=== PATIENT | male | born 1950 | race Caucasian/White ===

== ENCOUNTER 2016-12-22 19:51 | Emergency (ER) | payer MEDICARE ==
--- NOTE | 2016-12-22 20:25 | ED Physician Documentation ---
PD HPI CHEST PAIN - Stated complaint Stated Complaint: CHEST PX - Chief complaint Chief Complaint: Cardiac - History obtained from History obtained from: Patient - History of Present Illness Timing - onset: Other (Since early this morning he's had intermittent substernal chest achiness that is waxing and waning without a particular pattern. It does not seem to be related to eating, exertion. There is no radiation to it. It is never severe. Seen in his doctor's office this morning and had a normal EKG. He has no personal history of heart disease.) Review of Systems Ten Systems: 10 systems reviewed and negative Constitutional: denies: Fever, Chills Cardiac: denies: Palpitations, Pedal edema, Calf pain Respiratory: denies: Dyspnea, Cough, Hemoptysis, Wheezing PD PAST MEDICAL HISTORY - Past Medical History Past Medical History: Yes Cardiovascular: Hypertension - Past Surgical History General: Appendectomy - Present Medications Home Medications: Ambulatory Orders Medication Instructions Recorded Confirmed Clonidine HCl 0.2 mg PO BID 09/11/14 09/11/14 Lisinopril 20 mg PO DAILY 09/11/14 09/11/14 - Allergies Allergies/Adverse Reactions: Allergies Allergy/AdvReac Type Severity Reaction Status Date / Time No Known Drug Allergies Allergy Verified 12/22/16 20:01 - Social History Does the pt smoke?: No Smoking Status: Never smoker Does the pt drink ETOH?: Yes Does the pt have substance abuse?: No - Family History Family history: reports: Non contributory - Immunizations Immunizations are current?: Yes - POLST Patient has POLST: No PD ED PE NORMAL - Vitals Vital signs reviewed: Yes - General General: Alert and oriented X 3, No acute distress - HEENT HEENT: PERRL, EOMI - Neck Neck: Supple, no meningeal sign, No bony TTP - Cardiac Cardiac: RRR, No murmur - Respiratory Respiratory: No respiratory distress, Clear bilaterally - Abdomen Abdomen: Soft, Non tender - Back Back: No CVA TTP, No spinal TTP - Derm Derm: Normal color, Warm and dry - Extremities Extremities: No edema, No calf tenderness / cord - Neuro Neuro: Alert and oriented X 3, Normal speech - Psych Psych: Normal mood, Normal affect Results - Vitals Vitals: Vital Signs - 24 hr 12/22/16 12/22/16 12/22/16 19:58 21:21 23:01 Temperature 36.2 C L Heart Rate 78 68 60 Respiratory 19 20 20 Rate Blood Pressure 198/104 H 158/77 H 159/85 H O2 Saturation 98 96 98 Oxygen O2 Source Room air - EKG (time done) 2022 Rate: Rate (enter#) (62) Rhythm: NSR [place]: Normal Intervals: Normal PA QRS: Normal Ischemia: Normal ST segments Computer interpretation: Agree with computer - Labs Labs: Laboratory Tests 12/22/16 12/22/16 12/22/16 20:05 20:05 20:05 WBC 7.0 RBC 4.76 Hgb 15.2 Hct 43.6 MCV 91.7 MCH 31.9 H MCHC 34.8 RDW 13.1 Plt Count 237 MPV 8.2 Neut # 4.4 Lymph # 1.7 [place] # 0.7 Eos # 0.3 Baso # 0.0 Absolute Nucleated RBC 0.01 Nucleated RBCs 0.1 Sodium 140 Potassium 3.4 L Chloride 102 Carbon Dioxide 29 Anion Gap 9.0 BUN 17 Creatinine 0.7 Estimated GFR (MDRD) 112 Glucose 109 H Calcium 9.2 Total Bilirubin 0.3 AST 24 ALT 28 Alkaline Phosphatase 61 Total Creatine Kinase 196 CK-MB (CK-2) 6.4 H Troponin I < 0.04 Total Protein 7.6 Albumin 4.3 Globulin 3.3 Albumin/Globulin Ratio 1.3 Lipase 36 12/22/16 21:50 WBC RBC Hgb Hct MCV MCH MCHC RDW Plt Count MPV Neut # Lymph # [place] # Eos # Baso # Absolute Nucleated RBC Nucleated RBCs Sodium Potassium Chloride Carbon Dioxide Anion Gap BUN Creatinine Estimated GFR (MDRD) Glucose Calcium Total Bilirubin AST ALT Alkaline Phosphatase Total Creatine Kinase CK-MB (CK-2) Troponin I < 0.04 Total Protein Albumin Globulin Albumin/Globulin Ratio Lipase - Rads (name of study) 2v chest Radiology: EMP read contemporaneously (NAD) PD MEDICAL DECISION MAKING - ED course ED course: Has had constant pain for several hours now, atypical and mild with delta trop neg in the ED and no other findings. Discussed needs close followup, likely stress. 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 Return if worse or if new symptoms develop. Your blood pressure was elevated today on check in to the emergency department. This does not mean that you have hypertension, it is a common phenomenon to check into the emergency department and have elevated blood pressure. I recommend that you see your primary care physician within the week to have it rechecked when you're feeling better. Discharge Date/Time: 12/22/16 23:02
[2016-12-22 20:29] LABS: BASOPHILS % (AUTO) 0.4 %; EOSINOPHILS # (AUTO) 0.3 10^3/uL (0.0-0.7); EOSINOPHILS % (AUTO) 4.7 %; HCT - HEMATOCRIT 43.6 % (42.0-52.0); HGB - HEMOGLOBIN 15.2 g/dL (14.0-18.0); LYMPHOCYTES # (AUTO) 1.7 10^3/uL (1.5-3.5); LYMPHOCYTES % (AUTO) 23.5 %; MEAN CORPUSCULAR HEMOGLOBIN 31.9 pg (27.0-31.0); MEAN CORPUSCULAR HGB CONC 34.8 g/dL (32.0-36.0); MEAN CORPUSCULAR VOLUME 91.7 fL (80.0-94.0); MEAN PLATELET VOLUME 8.2 fL (7.4-11.4); MONOCYTES # (AUTO) 0.7 10^3/uL (0.0-1.0); MONOCYTES % (AUTO) 9.5 %; NEUTROPHILS # (AUTO) 4.4 10^3/uL (1.5-6.6); NEUTROPHILS % (AUTO) 61.9 %; NUCLEATED RED BLOOD CELLS AUTO 0.1 /100WBC; RED BLOOD COUNT 4.76 10^6/uL (4.70-6.10); RED CELL DISTRIBUTION WIDTH 13.1 % (12.0-15.0)
[2016-12-22 20:44] LABS: ALBUMIN/GLOBULIN RATIO 1.3 (1.0-2.2); BILIRUBIN,TOTAL 0.3 mg/dL (0.2-1.0); CALCIUM 9.2 mg/dL (8.5-10.3); CREATININE 0.7 mg/dL (0.6-1.2); POTASSIUM 3.4 mmol/L (3.5-5.0); TOTAL PROTEIN 7.6 g/dL (6.7-8.2)
[2016-12-22 20:49] LABS: CREATINE KINASE MB 6.4 ng/mL (0.6-6.3); TROPONIN I < 0.04 ng/mL (<0.49)
--- NOTE | 2016-12-22 22:43 | XRAY Preliminary Report ---
Exam: XR Chest 2 View PA/LAT IMPRESSION: Stable appearance of the chest without acute cardiopulmonary abnormality. [facility] SITE ID: [id number]
--- NOTE | 2016-12-22 22:46 | XRAY Report ---
EXAM: CHEST RADIOGRAPHY EXAM DATE: 12/22/2016 10:07 PM. CLINICAL HISTORY: Chest pain. COMPARISON: 07/21/2015 TECHNIQUE: 2 views. FINDINGS: Lungs/Pleura: There is right hemidiaphragm eventration as before. Small subsegmental right middle lob e opacity again noted, most consistent with persistent atelectasis and or scarring. There is no new a irspace disease. No effusion or pneumothorax is demonstrated. Mediastinum: Heart and mediastinal contours are unremarkable. Other: None. IMPRESSION: Stable appearance of the chest without acute cardiopulmonary abnormality. [facility] Referring Provider Line: [phone] SITE ID: [id number]
[2016-12-22 23:03] VITALS: BP 159/85
== END 2016-12-22 23:02 | disposition home or self-care (01) ==
LOC: ED 19:51
DX: R07.89 Other chest pain (principal); I10 Essential (primary) hypertension
CPT/HCPCS: 36415; 71020; 80053; 82550; 82553; 83690; 84484; 85025; 93005; 93010; 99283; 99284

== ENCOUNTER 2018-12-23 11:55 | Outpatient (CLI) | payer BC, MEDICARE | END 2018-12-23 11:56 | disposition short-term general hospital (02) | LOC: EMS 11:55 | PROVIDERS: ATTEND Surgery | DX: R11.2 Nausea with vomiting, unspecified (principal); R55 Syncope and collapse; R50.9 Fever, unspecified | CPT/HCPCS: A0425; A0427 ==

== ENCOUNTER 2019-08-28 09:37 | Outpatient (CLI) | payer OTHER, MEDICARE ==
--- NOTE | 2019-08-28 15:22 | XRAY Report ---
Reason: RIGHT HAND TENDINITIS Procedure Date: 08/28/2019 Accession Number: [id number] / [id number] Procedure: WCP - Hand 3 View RT CPT Code: Final Report FULL RESULT: EXAM: RIGHT HAND RADIOGRAPHY EXAM DATE: 08/28/2019 09:37 AM. CLINICAL HISTORY: RIGHT HAND TENDINITIS. COMPARISON: None. TECHNIQUE: 3 views. FINDINGS: Bones: No acute fractures or suspicious bone lesions. Joints: No subluxations. Soft Tissues: Unremarkable. IMPRESSION: No acute radiographic abnormalities. [facility]
== END 2019-08-28 23:59 | disposition home or self-care (01) ==
LOC: DI.WCP 09:37
PROVIDERS: ATTEND Family Medicine
DX: M77.9 Enthesopathy, unspecified (principal)

== ENCOUNTER 2020-09-08 16:11 | Outpatient (CLI) | payer OTHER, MEDICARE ==
[2020-09-08 17:16] VITALS: BP 130/73
--- NOTE | 2020-09-08 17:16 | SLEEP CARE CONSULTATION ---
Information from patient questionnaire entered by Ramez Quiles. I have reviewed and concur with the information entered by Ramez Quiles. This document represents the service I personally performed and the decisions made by me, Eneida Mix ARNP. History of Present Illness Service Date and Time: 09/08/2020 1611 Reason for Visit: New patient Chief Complaint: reports: Unrefreshed sleep, Snoring, Observed pauses in breathing, Fatigue, Frequent awakenings at night Date of Onset: 5 years Usual bedtime: 9:30 Time it takes to fall asleep: 10 min Snores at night: Yes Observed to quit breathing while asleep: Yes Sleeps alone due to snoring: No Number of times waking at night: ? Reasons for waking at night: reports: Gasping for air, Other (?). denies: Choking, Snoring Toss, Turn, or Twitch while sleeping: Yes Recalls having dreams: Yes Usually gets out of bed at: 3:00 am Feels refreshed in the morning: No Morning headache: No Sleepy or fatigued during the day: Yes Ever fallen asleep while driving: No Takes day naps: Yes (1 hour in evenings) Dreams during day naps: No Prior sleep studies: No Additional HPI information: I had the pleasure of seeing ERIC ARAGON today regarding the possibility of him having a sleep disorder. His current complaints are frequent night awakenings and unrefreshed sleep. He had a checkup with PCP and was suggested to have evaluation. He snores loudly but not enough to run out of room. His has never noticed him have any pauses in breathing but he has noticed it. He has woke up trying to catch his breath occasionally. 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 Patient is and lives in [place]. Have you smoked in the past 12 months: No Alcohol use: Yes Alcohol amount and frequency: 2-3 times a week Caffeine use: Yes Caffeine amount and frequency: 2 cups coffee each morning Family History Family history of sleep disordered breathing: Yes (Father) Family Hx Sleep Apnea: Father: Snoring, Sleep apnea - Untreated (currently ) Allergies and Home Medications Drug allergies reviewed: Yes (NKDA) Home medication list reviewed: Yes Allergy and home medication list: Felodipine Rosuvatatin Hydrochlorothiazide Lisinopril Clonidine Review of Systems Weight gain over past 5 years: Yes Weight loss over past 5 years: 10 Cardiovascular: reports: high blood pressure, palpitations Gastrointestinal: reports: heartburn Neurological: denies: headaches, head trauma Ear/Nose/Throat: reports: dry mouth/throat (more in afternoon, some in morning; probably medication related). denies: injury to nose, tonsillectomy, wisdom teeth removed Endocrine: reports: sluggishness (tired) Musculoskeletal: reports: muscle pain or cramping Immunologic: denies: allergies to food or environment Physical Exam Vital signs obtained and entered by: Blood Pressure: 130/73 Cuff size: wrist Heart Rate: 71 O2 Saturation: 95 Height: 5 ft 11 in Weight: 265 lb Body Mass Index: 36.9 BMI Classification: Obese Nostrils: patent to airflow Mouth and throat: narrow oropharynx Uvula visualization: 25% Mallampati Class III Tongue: enlarged in size with teeth shah on lateral edges Tonsils: 1+ Heart: regular rate and rhythm Lungs: clear bilaterally Impression and Plan 1. Suspected Obstructive Sleep Apnea-Hypopnea Syndrome, as suggested by a history of irregular snoring, observed cessation of breath while asleep, gasping or choking in sleep, frequent awakening during the night, unrefreshed sleep and daytime fatigue. Narrow oropharynx and obesity are common predisposing factors for obstructive sleep apnea-hypopnea syndrome. I recommend proceeding to polysomnography to confirm the diagnosis and to assess severity. If the patient has significant sleep disordered breathing, a manual CPAP titration study will also be performed to find the optimal treatment pressure. I informed the patient of what the sleep studies involve and after some discussion, obtained agreement to proceed. The pathophysiology of obstructive sleep apnea-hypopnea syndrome was discussed with the patient and health risks of cardiovascular and c erebrovascular disease if not treated. AAS brochure for obstructive sleep apnea-hypopnea syndrome given and reviewed. 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 Patient agreed to plan. * Schedule polysomnography +- manual CPAP titration study and return in 1-2 weeks after the study to discuss result and initiate therapy. * Avoid long distance driving or driving when feeling sleepy. * Avoid alcohol, sedative and muscle relaxant around bedtime. * Attempt to lose weight. * Review instructions provided by trained office staff on how to prepare for the sleep study. * Return for follow-up after sleep study completed. Counseling Topics: Weight loss health impact Visit Type: In Office Time Spent with Patient (minutes): 30 Provider Statement: I spent 100% of the Face to Face Visit with the patient with greater than 50% spent counseling the patient and coordination of care.
== END 2020-09-08 16:12 | disposition home or self-care (01) ==
LOC: SC 16:11
PROVIDERS: ATTEND Nurse Practitioner Family
DX: R06.81 Apnea, not elsewhere classified (principal); R06.83 Snoring; G47.8 Other sleep disorders; R53.83 Other fatigue; E66.9 Obesity, unspecified; Z68.36 Body mass index [BMI] 36.0-36.9, adult
CPT/HCPCS: 99203; 99212

== ENCOUNTER 2022-12-26 09:49 | Outpatient (CLI) | payer OTHER, MEDICARE ==
--- NOTE | 2022-12-26 16:20 | XRAY Report ---
PROCEDURE: Chest 2 View X-Ray INDICATIONS: PNEUMONIA RIGHT LOWER LOBE TECHNIQUE: 2 views of the chest were acquired. COMPARISON: Chest x-ray 12/22/2016 FINDINGS: Surgical changes and devices: None. Lungs and pleura: No pleural effusions or pneumothorax. Lungs are clear. Mediastinum: Mediastinal contours appear normal. Heart size is normal. Bones and chest wall: No suspicious bony lesions. Overlying soft tissues appear unremarkable. IMPRESSION: No acute cardiopulmonary process. Reviewed by: Chanelle Morales MD on 12/26/2022 4:19 PM PDT Approved by: Chanelle Morales MD on 12/26/2022 4:19 PM PDT Station ID: [id number]
== END 2022-12-26 09:50 | disposition home or self-care (01) ==
LOC: DI.N 09:49
PROVIDERS: ATTEND Family Medicine
DX: J18.9 Pneumonia, unspecified organism (principal)